=== PATIENT | male | born 1955 | race Caucasian/White ===

== ENCOUNTER → 2019-07-02 | Outpatient (CLI) | payer OTHER ==
[~2019-07-02] MED LIST: ASPI81EC PO; LISI5 PO; LOVA20 PO; LOVA40 PO
[2019-07-02 16:22] LABS: BASOPHILS ABSOLUTE AUTO 0.03 K/mm3 (0.00-0.23); BASOPHILS PERCENT AUTO 1 % (0-2); EOSINOPHILS ABSOLUTE AUTO 0.09 K/mm3 (0.00-0.68); EOSINOPHILS PERCENT AUTO 2 % (0-6); Hematocrit 44.1 % (37.0-53.0); Hemoglobin 15.3 g/dL (13.5-17.5); IMMATURE GRAN ABSOLUTE AUTO 0.01 K/mm3 (0.00-0.10); IMMATURE GRAN PERCENT AUTO 0 % (0-1); LYMPHOCYTES PERCENT AUTO 24 % (21-46); MONOCYTES ABSOLUTE AUTO 0.46 K/mm3 (0.16-1.47); MONOCYTES PERCENT AUTO 8 % (4-13); Mean Corpuscular HGB 32.7 pg (26.0-34.0); Mean Corpuscular HGB Conc 34.7 g/dL (31.5-36.5); Mean Corpuscular Volume 94 fL (80-100); Mean Platelet Volume 9.8 fL (9.1-12.4); NEUTROPHILS ABSOLUTE AUTO 3.64 K/mm3 (1.96-9.15); NEUTROPHILS PERCENT AUTO 66 % (41-73); Platelet Count 274 K/mm3 (150-400); RDW Coefficient Variation 11.9 % (11.7-14.2); RDW Standard Deviation 41.4 fL (35.1-46.3); Red Blood Cell Count 4.68 M/mm3 (4.30-5.90); White Blood Cell Count 5.53 K/mm3 (4.00-11.30)
[2019-07-02 16:42] LABS: Alanine Aminotransfer (ALT/SGP 27 U/L (12-78); Albumin/Globulin Ratio 1.4 (0.8-1.8); Alk Phos 57 U/L (50-136); Anion Gap 3 mmol/L (6-16); Aspartate Aminotrans (AST/SGOT 23 U/L (12-37); Bilirubin, Total 0.4 mg/dL (0.1-1.0); Blood Urea Nitrogen 19 mg/dL (8-24); Bun/Creatinine Ratio 19.1 (12.0-20.0); CO2, Blood 27 mmol/L (21-32); Calcium, Blood 8.8 mg/dL (8.5-10.1); Chloride, Blood 107 mmol/L (98-108); Globulin, Blood 2.9 g/dL (2.2-4.0); Glomerular Filtration Rate >60 (60-); Glucose, Blood 101 mg/dL (70-99); Potassium, Blood 3.9 mmol/L (3.5-5.5); Sodium, Blood 137 mmol/L (136-145); Total Protein, Blood 6.9 g/dL (6.4-8.2)
== END ==
LOC: LAB SHORT 15:30 → LAB 15:30
PROVIDERS: Emergency Medicine
DX: R42 Dizziness and giddiness (principal)
CPT/HCPCS: 80053; 85025

== ENCOUNTER → 2021-04-23 | Outpatient (CLI) | payer OTHER ==
[2021-04-24 16:47] LABS: CORONAVIRUS (COVID19) CSH-NRL Negative (Negative)
== END ==
LOC: LAB SHORT 08:50 → LAB 08:50
PROVIDERS: Physician Assistant
DX: Z20.822 Contact with and (suspected) exposure to COVID-19 (principal)
CPT/HCPCS: U0003

== ENCOUNTER 2021-08-18 12:02 | Emergency (ER) | payer OTHER ==
[~2021-08-18] VITALS: Ht 188 cm; Wt 83.5 kg
[2021-08-18 13:52] LABS: BASOPHILS ABSOLUTE AUTO 0.03 K/mm3 (0.00-0.23); BASOPHILS PERCENT AUTO 0 % (0-2); EOSINOPHILS ABSOLUTE AUTO 0.04 K/mm3 (0.00-0.68); EOSINOPHILS PERCENT AUTO 0 % (0-6); Hematocrit 45.5 % (37.0-53.0); Hemoglobin 15.5 g/dL (13.5-17.5); IMMATURE GRAN ABSOLUTE AUTO 0.03 K/mm3 (0.00-0.10); IMMATURE GRAN PERCENT AUTO 0 % (0-1); LYMPHOCYTES ABSOLUTE AUTO 1.43 K/mm3 (0.84-5.20); LYMPHOCYTES PERCENT AUTO 15 % (21-46); MONOCYTES ABSOLUTE AUTO 0.81 K/mm3 (0.16-1.47); MONOCYTES PERCENT AUTO 8 % (4-13); Mean Corpuscular HGB Conc 34.1 g/dL (31.5-36.5); Mean Corpuscular Volume 94 fL (80-100); Mean Platelet Volume 9.5 fL (9.1-12.4); NEUTROPHILS PERCENT AUTO 76 % (41-73); Platelet Count 260 K/mm3 (150-400); RDW Coefficient Variation 12.7 % (11.7-14.2); RDW Standard Deviation 43.9 fL (35.1-46.3); Red Blood Cell Count 4.84 M/mm3 (4.30-5.90); White Blood Cell Count 9.84 K/mm3 (4.00-11.30)
[2021-08-18 14:16] LABS: Alanine Aminotransfer (ALT/SGP 23 U/L (12-78); Albumin, Blood 3.7 g/dL (3.4-5.0); Albumin/Globulin Ratio 1.1 (0.8-1.8); Alk Phos 77 U/L (50-136); Anion Gap 9 mmol/L (6-16); Aspartate Aminotrans (AST/SGOT 17 U/L (12-37); Bilirubin, Total 0.9 mg/dL (0.1-1.0); Blood Urea Nitrogen 13 mg/dL (8-24); Bun/Creatinine Ratio 16.1 (12.0-20.0); CO2, Blood 26 mmol/L (21-32); Calcium, Blood 9.1 mg/dL (8.5-10.1); Chloride, Blood 102 mmol/L (98-108); Creatinine, Blood 0.81 mg/dL (0.60-1.20); Globulin, Blood 3.3 g/dL (2.2-4.0); Glomerular Filtration Rate >60 (60-); Glucose, Blood 98 mg/dL (70-99); Potassium, Blood 4.1 mmol/L (3.5-5.5); Sodium, Blood 137 mmol/L (136-145)
[2021-08-18] MEDS ORDERED: IBUP600 PO (17:32)
[2021-08-18] MEDS ORDERED: CYCL10 PO (17:32)
== END 2021-08-18 17:44 | disposition home or self-care (01) ==
LOC: ER 12:02
PROVIDERS: Physician Assistant
DX: M62.838 Other muscle spasm (principal); E78.5 Hyperlipidemia, unspecified; I50.20 Unspecified systolic (congestive) heart failure
CPT/HCPCS: 36415; 70450; 72125; 80053; 85025; 96374; 99284-25; A9270; J1885

== ENCOUNTER 2024-07-06 08:04 | Emergency (ER) | payer OTHER ==
[~2024-07-06] VITALS: Ht 188 cm; Wt 81.7 kg
[~2024-07-06 08:04] MED LIST changes: +CYCL10 PO; +IBUP600 PO
[2024-07-06 09:19] LABS: BASOPHILS ABSOLUTE AUTO 0.02 K/mm3 (0.00-0.23); BASOPHILS PERCENT AUTO 0 % (0-2); EOSINOPHILS ABSOLUTE AUTO 0.07 K/mm3 (0.00-0.68); EOSINOPHILS PERCENT AUTO 1 % (0-6); Hematocrit 44.4 % (37.0-53.0); Hemoglobin 15.3 g/dL (13.5-17.5); IMMATURE GRAN ABSOLUTE AUTO 0.01 K/mm3 (0.00-0.10); IMMATURE GRAN PERCENT AUTO 0 % (0-1); LYMPHOCYTES ABSOLUTE AUTO 1.25 K/mm3 (0.84-5.20); LYMPHOCYTES PERCENT AUTO 24 % (21-46); MONOCYTES ABSOLUTE AUTO 0.43 K/mm3 (0.16-1.47); MONOCYTES PERCENT AUTO 8 % (4-13); Mean Corpuscular HGB 31.5 pg (26.0-34.0); Mean Corpuscular HGB Conc 34.5 g/dL (31.5-36.5); Mean Corpuscular Volume 92 fL (80-100); Mean Platelet Volume 9.9 fL (9.1-12.4); NEUTROPHILS PERCENT AUTO 66 % (41-73); Platelet Count 244 K/mm3 (150-400); RDW Coefficient Variation 12.2 % (11.7-14.2); RDW Standard Deviation 40.5 fL (35.1-46.3); Red Blood Cell Count 4.85 M/mm3 (4.30-5.90); White Blood Cell Count 5.18 K/mm3 (4.00-11.30)
[2024-07-06 09:33] LABS: International Normalized Ratio 0.95; Prothrombin Time Results 10.2 Sec (9.7-11.5)
[2024-07-06 09:35] LABS: Albumin/Globulin Ratio 1.3 (0.8-1.8); Bilirubin, Total 0.5 mg/dL (0.1-1.0); Bun/Creatinine Ratio 16.1 (12.0-20.0); Calcium, Blood 9.5 mg/dL (8.5-10.1); Creatinine, Blood 0.93 mg/dL (0.60-1.20); Potassium, Blood 4.3 mmol/L (3.5-5.5)
[2024-07-06] MEDS ORDERED: Lisinopril 5 MG Tab PO ONE (11:10)
[2024-07-06 11:57] VITALS: BP 172/95
[2024-07-06] MEDS ORDERED: Prinivil5 MG PO (12:41)
== END 2024-07-06 12:47 | disposition home or self-care (01) ==
LOC: ER 08:04
PROVIDERS: Physician Assistant
DX: R51.9 Headache, unspecified (principal); R03.0 Elevated blood-pressure reading, without diagnosis of hypertension; R20.2 Paresthesia of skin; E78.5 Hyperlipidemia, unspecified
CPT/HCPCS: 70450; 71046; 80053; 84484; 85025; 85610; 93005; 93010; 99284-25; A9270